=== PATIENT | female | born 1935 | race Caucasian/White ===

== ENCOUNTER → 2017-02-10 | Outpatient (CLI) | payer MEDICARE, OTHER ==
[~2017-02-10] MED LIST: ACET-2723 PO; ANAS1TAB8 PO; ASPI-611 PO; ASPI325T PO; CALC-191 PO; CYAN1TAB46 PO; FLUT16SP NAS; GLUC1CAP45 PO; LABE200T PO; LEVO88TA7 PO; LISI40TA4 PO; MULT-543 PO; OMEP40CA30 PO; PROP10DR3 OP; SIMV40TA5 PO
== END ==
LOC: WC.BC 13:25
DX: C50.912 Malignant neoplasm of unspecified site of left female breast (principal); N64.89 Other specified disorders of breast; Z08 Encounter for follow-up examination after completed treatment for malignant neoplasm
CPT/HCPCS: G0204; G0279